=== PATIENT | male | born 1990 | race Caucasian/White ===

== ENCOUNTER 2020-10-13 19:54 | Emergency (ER) | payer SELFPAY ==
[~2020-10-13] VITALS: Ht 172.7 cm; Wt 104.0 kg
[2020-10-13] MEDS ORDERED: CEPHALEXIN 250MG CAPSULE PO ONE (21:15)
[2020-10-13] MEDS ORDERED: HYDROCODONE/ACETAMINOPHEN 5/325MG TABLET PO ONE (21:15)
[2020-10-13] MEDS ORDERED: TETANUS, DIPHTHERIA, PERTUSSIS VAC/PF 0.5ML (>7YR OLD) IM ONE (21:15)
[2020-10-13] MEDS ORDERED: LIDOCAINE HCL 1% 20ML VIAL (Pyxis) INJ INFIL ONE (23:45)
[2020-10-14] MEDS ORDERED: HYDR-4001 MT (01:59)
[2020-10-14] MEDS ORDERED: CEPH500C2 MT (01:59)
[2020-10-14 02:26] VITALS: BP 124/80
== END 2020-10-14 02:27 | disposition home or self-care (01) ==
LOC: ER 19:54
DX: S61.314A Laceration without foreign body of right ring finger with damage to nail, initial encounter (principal); W26.0XXA Contact with knife, initial encounter; Y93.89 Activity, other specified; Y92.89 Other specified places as the place of occurrence of the external cause
CPT/HCPCS: 12001; 90471; 90715; 99283; A4217; J3490; Z7610